=== PATIENT | female | born 1935 | race Caucasian/White ===

== ENCOUNTER 2022-03-14 09:45 | Emergency (ER) | payer MEDICARE, SELFPAY ==
[2022-03-14 09:49] VITALS: BP 163/69; PULSE 59; RESP 20; TEMP 36.2; O2SAT 98; BMI 33.5
--- NOTE | 2022-03-14 09:57 | CRLHL7_ITS ---
For Patients: As a result of the Century Cures Act, medical imaging exams and procedure reports are released immediately into your electronic medical record. You may view this report before your referring provider. If you have questions, please contact your health care provider. Indication: Pain Comparison: None available. Technique: AP and lateral views lumbar spine were obtained. Findings: The lumbar vertebral body heights demonstrate somewhat age indeterminate deformity of the T12 superior endplate with approximately 50 percent height loss. Additional subtle deformity of the anterosuperior L3 level is appreciated. There is moderate multilevel degenerative disc disease with disc height loss and marginal osteophyte formation. There is moderate to severe facet arthrosis. There is no evidence of displaced fracture. The soft tissues are unremarkable. Impression: Age-indeterminate deformities of the T12 and anterosuperior L3 levels without evidence of displaced fracture. Consider follow-up with MRI for improved characterization of subtle marrow edema. Dictated by Hood Jennings MD @ 03/14/2022 11:25:59 AM (Electronically Signed)
--- NOTE | 2022-03-14 10:01 | ED.GENADULT ---
HPI - General Adult General Time Seen by Provider: 10:01 Date Seen: 03/14/22 Chief complaint: Back Injury/Pain Stated complaint: Lower back pain Time Seen by Provider: 03/14/22 09:56 Source: patient Mode of arrival: ambulatory Limitations: physical limitation History of Present Illness HPI narrative: Patient is a 87-year-old female has had 3 days of low back pain primarily on the right across her lumbar spine. No radicular symptoms, no bowel or bladder symptoms, fever chills perineal numbness. The patient denies trauma or injury. She reports she had a pelvic fracture in the past and some ?back injury ?in the past as well. She is not sure she had a compression fracture or not. She has had no fever chills cough no systemic signs of illness. No night sweats. She presents to ED for pain control and for assessment. Related Data Home Medications Medication Instructions Recorded Confirmed budesonide-formoterol HFA 80 2 puff inhalation DAILY 03/14/22 03/14/22 mcg-4.5 mcg/actuation aerosol inhaler (Symbicort) metoprolol succinate 25 mg 25 mg PO DAILY 03/14/22 03/14/22 tablet,extended release 24 hr potassium chloride 20 mEq 20 meq PO DAILY 03/14/22 03/14/22 tablet,extended release(part/cryst) rosuvastatin 10 mg tablet 10 mg PO HS 03/14/22 03/14/22 torsemide 20 mg tablet 60 mg PO DAILY 03/14/22 03/14/22 Previous Rx's Medication Instructions Recorded hydrocodone 5 mg-acetaminophen 325 1 tab PO Q8H PRN pain #14 tabs 03/14/22 mg tablet Allergies Allergy/AdvReac Type Severity Reaction Status Date / Time oxycodone AdvReac Mild Nausea Verified 03/14/22 10:28 Review of Systems Status of ROS: Reports: 6 or more systems reviewed and unremarkable except as noted in History and below PFSH PFSH Social History Smoking Status: Never smoker Do you use any of these nicotine containing products: None Second hand tobacco smoke exposure: No How often do you have a drink containing alcohol: never AUDIT-C Alcohol total score: 0 Non-prescribed substance use: denies use service: No Exam Narrative: Exam Narrative: Objective: Patient ambulates in a flexed position, blood pressure slightly elevated Mild distress and discomfort alert orient x3, noncyanotic Low back exam shows no tenderness no palpable tenderness Good strength and sensation lower extremities Good peripheral perfusion, no swelling the lower extremities. Const: Vital Signs, click to edit/add: Vital Signs - 24 hr 03/14/22 09:49 03/14/22 11:00 Temperature 97.1 F L Pulse Rate [Pulse Oximeter] 59 L 47 L Respiratory Rate 20 16 Blood Pressure [Ri ght Upper Arm] 163/69 H 134/60 Pulse Oximetry 98 94 Oxygen Delivery Me thod Room Air Room Air Course Vital Signs Vital signs: Initial Vital Signs Temperature 97.1 F L 03/14/22 09:49 Temperature Source Temporal Artery Scan 03/14/22 09:49 Pulse Rate 59 L 03/14/22 09:49 Respiratory Rate 20 03/14/22 09:49 Blood Pressure 163/69 H 03/14/22 09:49 Blood Pressure Mean 100 03/14/22 09:49 Blood Pressure Position Sitting 03/14/22 09:49 Pulse Oximetry 98 03/14/22 09:49 Oxygen Delivery Method 03/14/22 09:49 Vital Signs Temperature 97.1 F L 03/14/22 09:49 Pulse Rate 59 L 03/14/22 09:49 Respiratory Rate 20 03/14/22 09:49 Blood Pressure 163/69 H 03/14/22 09:49 Pulse Oximetry 98 03/14/22 09:49 Oxygen Delivery Method 03/14/22 09:49 Temperature 97.0 F L 03/14/22 11:51 Pulse Rate 50 L 03/14/22 11:51 Respiratory Rate 16 03/14/22 11:51 Blood Pressure 135/64 03/14/22 11:51 Pulse Oximetry 96 03/14/22 11:51 Oxygen Delivery Method 03/14/22 11:51 Medical Decision Making MDM Narrative Medical decision making narrative: Patient reports she has had some type of back injury in the past. Will check a lumbar spine x-ray, [place] per her request orally as opposed IM. Will see if she improves, will check her x-rays of her back. Disposition pending findings. If the x-rays look reasonable and no obvious injury. I think we can try some home [place], light activity, icing, follow-up with primary care in the next 2-3 days. Addendum: Patient's x-ray by my review shows a old T12 and L3 compression fracture. She has some degenerative changes as well. With 1 [place] tablet she has marked relief in her discomfort. She is able ambulate without difficulty. She has a ride home. I am going to let her go home now and follow up with her regular doctor Yahaira in the next few days. Her heart rate has been in the low 50s would recommend recheck this as she is on metoprolol, but she has not had any having any syncope or dizziness. Her blood pressure is adequate as well. She will have some [place] 5/325 at home p.r.n. caution was sad affect will give her 14 to use sparingly. Recheck with primary care and further workup pending her clinical improvement her back. At this point she seems markedly improved. Discharge Plan Discharge Clinical Impression: Acute low back pain Patient Disposition: Home, Self-Care Condition: Stable Additional Instructions: Light activity, [place] as needed for pain, cautioned about sedative effect of the [place], recheck her heart rate when you see the primary care doctor in the next few days. If not improving need follow-up with your primary care as well. Discharge Diet: Regular Prescriptions: New hydrocodone-acetaminophen 5-325 mg tablet 1 tab PO Q8H PRN (Reason: pain) Qty: 14 0RF No Action budesonide-formoterol [Symbicort] 80-4.5 mcg/actuation HFA aerosol inhaler 2 puff INHALATION DAILY Label Comments: Inhale 2 Puffs by mouth into the lungs once daily. metoprolol succinate 25 mg tablet extended release 24 hr 25 mg PO DAILY Label Comments: Take 1 Tablet (25 mg) by mouth once daily. potassium chloride 20 mEq tablet,ER particles/crystals 20 meq PO DAILY Label Comments: Take 1 Tablet (20 mEq) by mouth once daily with a meal. rosuvastatin 10 mg tablet 10 mg PO HS Label Comments: TAKE 1 TABLET BY MOUTH every night AT BEDTIME torsemide 20 mg tablet 60 mg PO DAILY Label Comments: TAKE THREE TABLETS BY MOUTH DAILY Follow Up/Referrals: Kennedi Gracia DO [Primary Care Provider] - Stand Alone Forms: [employer] Info Instructions
[2022-03-14] MEDS: HYDROCODONE/ACETAMIN 7.5-325 TABLET 1 TAB PO (10:18)
[2022-03-14 11:00] VITALS: BP 134/60; PULSE 47; RESP 16; O2SAT 94
--- NOTE | 2022-03-14 11:05 | ED.NURSE ---
Notified MD of heart rate in the 40s. Patient denies dizziness at this time. Is seeing cardiology next week.
[2022-03-14 11:51] VITALS: BP 135/64; PULSE 50; RESP 16; TEMP 36.1; O2SAT 96
== END 2022-03-14 12:01 | disposition home or self-care (01) ==
PROVIDERS: Emergency Provider Family Medicine; PCP Family Medicine
DX: M54.50 Low back pain, unspecified (principal)
CPT/HCPCS: 72100; 99283; 99284; A9270